=== PATIENT | male | born 1965 | race Caucasian/White ===

== ENCOUNTER → 2016-02-21 | Day surgery (SDC) | payer BC ==
[~2016-02-21] VITALS: Ht 162.6 cm; Wt 62.5 kg
[~2016-02-21] MED LIST: *morphine SULFATE 8 MG/ML PERIprocedure ONLY ONE; ACETAMINOPHEN 1000 MG/100 ML VIAL IV SCH; ATOR40TA16 PO; BUPIVACAINE/EPINEPHRINE 0.25% PF 30 ML VIAL ONE; BUTA1CAP5 PO; DO NOT ADM ANY ANTICOAGULANT DRUGS XX PRN; INSULIN HUMAN REGULAR 1,000 UNITS/10 ML VIAL SQ PRN; KETOROLAC TROMETHAMINE 60 MG/2 ML (IM) VIAL IM ONE; LACTATED RINGER'S 1000 ML IV SCH; LIDOCAINE 1%/EPINEPHrine 1:100,000 SOLN 20 ML VIAL ONE; METOPROLOL TARTRATE 25 MG TAB PO PRN; MIDAZOLAM HCL 2 MG/2 ML VIAL ONE; MORPHINE SULFATE 4 MG/ML INJ IV PRN; ONDANSETRON HCL 4 MG/2 ML VIAL IV PUSH PRN; PROPOFOL 200 MG/20 ML AMP IV ONE; SODIUM CHLORID 0.9% 500 ML IV SCH; ceFAZolin 2 GM PREMIX 50 ML IV SCH; fentaNYL CITRATE 250 MCG/5 ML AMP ONE; oxyCODONE/ACETAMINOPHEN 5 MG/325 MG TAB PO PRN
[2016-02-21 08:10] VITALS: BP 147/89; PULSE 77; RESP 16; TEMP 99; O2SAT 97
--- NOTE | 2016-02-21 11:08 | PD.OP ---
Operative Report Date of Surgery: Feb 21, 2016 Preoperative Diagnosis: (1) Left inguinal hernia Postoperative Diagnosis: (1) Left inguinal hernia Procedure: Left inguinal hernia repair Anesthesia: TIVA Surgeon: Matheus Banda Field Rep(s): Carla Mayes Operation and Findings: EBL: 5 cc Operative findings: The patient had a direct left inguinal hernia. The entire inguinal floor was weak. There was no evidence of an indirect hernia. Procedure in detail: The patient was taken to the operating room and placed in the supine position. TIVA anesthesia was induced. The lower abdomen and groin was prepped and draped in usual sterile fashion. Appropriate preoperative antibiotics were administered. Lidocaine with epinephrine was injected in the skin and subcutaneous tissue in the left inguinal area and an inguinal incision was made. Dissection was carried out through subcutaneous tissue with electrocautery. [place]'s fascia was divided with electrocautery and the external oblique was encountered. A paula along the direction of fibers was created with a scalpel and extended with Metzenbaum scissors taking care not to injure underlying nerves. The external oblique flaps were created. The spermatic cord and hernia sac were from underlying tissues and the pubis and isolated with a Joseph drain. Cremasteric muscle fibers were divided as necessary. At this point the spermatic cord structures were examined and no indirect hernia was encountered. The spermatic vessels and vas deferens were carefully preserved. The patient had a direct hernia defect medially. In addition the majority of the inguinal floor was weakened. A 3 x 5 " piece of lightweight polypropylene mesh was then cut to size. This was secured using simple interrupted 2-0 Ethibond suture to the pubic tubercle and along the inguinal ligament past the entrance of the spermatic cord into the internal ring. Simple interrupted 2-0 Ethibond sutures were used to fasten the superior aspect of the mesh medially and superiorly along the conjoined tendon and internal oblique fibers taking care to avoid nearby nerves. The internal ring was re-created by reapproximating the mesh with interrupted suture taking care to avoid strangulation of the cord. The lateral flaps of mesh were tucked under the external oblique fascia. There was appropriate hemostasis in the operative field. The external ring was re-created by closing the external oblique fascia with running 2-0 Vicryl suture. [place]'s was closed with interrupted 3-0 Vicryl sutures. Skin closed with running subcuticular 4-0 Monocryl as well as Dermabond. The patient tolerated procedure well and was taken to postop in stable condition. Matheus Banda MD Feb 21, 2016 11:08
[2016-02-21 13:00] VITALS: BP 119/80; PULSE 64; RESP 16; TEMP 98.1; O2SAT 97
== END | disposition home or self-care (01) ==
LOC: HSDC 07:41
PROVIDERS: ATTEND Surgery
DX: K40.90 Unilateral inguinal hernia, without obstruction or gangrene, not specified as recurrent (principal)
CPT/HCPCS: 00830; 49505; C1781; J0131; J0690; J1885; J2250; J2270; J3010; J7120

== ENCOUNTER 2017-04-04 01:01 | Emergency (ER) | payer BC, OTHER ==
[~2017-04-04] VITALS: Ht 162.6 cm; Wt 63.6 kg
[~2017-04-04 01:01] MED LIST changes: -*morphine SULFATE 8 MG/ML PERIprocedure ONLY ONE; -ACETAMINOPHEN 1000 MG/100 ML VIAL IV SCH; -BUPIVACAINE/EPINEPHRINE 0.25% PF 30 ML VIAL ONE; -DO NOT ADM ANY ANTICOAGULANT DRUGS XX PRN; -INSULIN HUMAN REGULAR 1,000 UNITS/10 ML VIAL SQ PRN; -KETOROLAC TROMETHAMINE 60 MG/2 ML (IM) VIAL IM ONE; -LACTATED RINGER'S 1000 ML IV SCH; -LIDOCAINE 1%/EPINEPHrine 1:100,000 SOLN 20 ML VIAL ONE; -METOPROLOL TARTRATE 25 MG TAB PO PRN; -MIDAZOLAM HCL 2 MG/2 ML VIAL ONE; -MORPHINE SULFATE 4 MG/ML INJ IV PRN; -ONDANSETRON HCL 4 MG/2 ML VIAL IV PUSH PRN; -PROPOFOL 200 MG/20 ML AMP IV ONE; -SODIUM CHLORID 0.9% 500 ML IV SCH; -ceFAZolin 2 GM PREMIX 50 ML IV SCH; -fentaNYL CITRATE 250 MCG/5 ML AMP ONE; -oxyCODONE/ACETAMINOPHEN 5 MG/325 MG TAB PO PRN
[2017-04-04 01:28] VITALS: BP 122/72; PULSE 92; RESP 16; TEMP 98.1; O2SAT 95
[2017-04-04 02:28] LABS: AUTOMATED NEUTROPHIL # 3.3 TH/MM3 (1.8-7.7); BASOPHIL # 0.2 TH/MM3 (0-0.2); BASOPHIL % 3.3 % (0.0-2.0); EOSINOPHIL # 0.2 TH/MM3 (0-0.4); EOSINOPHIL % 4.5 % (0.0-4.0); HEMATOCRIT 46.3 % (39.0-51.0); HEMOGLOBIN 16.6 GM/DL (13.0-17.0); LYMPH % 16.8 % (9.0-44.0); LYMPHOCYTE # 0.8 TH/MM3 (1.0-4.8); MEAN CELL VOLUME 86.1 FL (80.0-100.0); MEAN CORPUSCULAR HEMOGLOBIN 30.8 PG (27.0-34.0); MEAN CORPUSCULAR HGB CONC 35.7 % (32.0-36.0); MONO % 6.4 % (0.0-8.0); MONOCYTE # 0.3 TH/MM3 (0-0.9); PLATELET COUNT 246 TH/MM3 (150-450); RED BLOOD COUNT 5.38 MIL/MM3 (4.50-5.90); RED CELL DISTRIBUTION WIDTH 12.7 % (11.6-17.2); WHITE BLOOD COUNT 4.8 TH/MM3 (4.0-11.0)
[2017-04-04 02:29] LABS: BILIRUBIN, URINE NEG (NEG); BLOOD, URINE NEG (NEG); GLUCOSE,URINE NEG (NEG); KETONE, URINE NEG (NEG); MUCUS URINE FEW /lpf (OCC); NITRITE,URINE NEG (NEG); SQUAMOUS EPITHELIAL CELL URINE <1 /hpf (0-5); URINE COLOR LIGHT-YELLOW (YELLW/STRAW); URINE LEUKOCYTE ESTERASE NEG (NEG)
[2017-04-04 03:01] LABS: ALBUMIN 3.8 GM/DL (3.4-5.0); AST (GOT) 27 U/L (15-37); BICARBONATE 22.4 MEQ/L (21.0-32.0); BLOOD UREA NITROGEN 11 MG/DL (7-18); CALCIUM 8.5 MG/DL (8.5-10.1); CHLORIDE 107 MEQ/L (98-107); CREATININE 0.86 MG/DL (0.60-1.30); GLOMERULAR FILTRATION RATE 93 ML/MIN (>89); GLUCOSE,RANDOM 123 MG/DL (74-106); SODIUM (NA) 141 MEQ/L (136-145)
[2017-04-04 03:06] LABS: ALKALINE PHOSPHATASE 66 U/L (45-117); ALT (GPT) 41 U/L (12-78); TOTAL BILIRUBIN ADULT 0.3 MG/DL (0.2-1.0); TOTAL PROTEIN 7.6 GM/DL (6.4-8.2)
--- NOTE | 2017-04-04 03:23 | PD ---
HPI Chief Complaint: Psychiatric Symptoms Time Seen by Provider: 03:11 Travel History International Travel<30 days: No Contact w/Intl Traveler<30days: No Traveled to known affect area: No History of Present Illness HPI 51-year-old white male presents emergency department under [place] act by PD. The patient had posted suicide suggested posts on Facebook. The patient states that he had broken up with his boyfriend approximately 3 weeks ago. He had been drinking alcohol today. He had hoped that this somehow would bring his partner back. He wanted to know that people actually cared about him. He denies any true suicidal ideation. No homicidal ideation. No toxic ingestions. He does not smoke or do drugs. He states that he drinks on weekends. He denies any medical complaints. PFSH Past Medical History Cancer: No Cardiovascular Problems: No Diabetes: No Endocrine: No Gastrointestinal Disorders: Yes (GERD) Genitourinary: No Hepatitis: No Hiatal Hernia: Yes Immune Disorder: No Medical other: Yes (HYPERCHOLESTEROLEMIA) Musculoskeletal: No Neurologic: Yes (MIGRAINES) Psychiatric: No Respiratory: No Thyroid Disease: No Influenza Vaccination: No Past Surgical History Abdominal Surgery: No AICD: No Body Medical Devices: NONE Cardiac Surgery: No Ear Surgery: No Endocrine Surgery: No Eye Surgery: No Genitourinary Surgery: No Gynecologic Surgery: No Joint Replacement: No Oral Surgery: No Pacemaker: No Thoracic Surgery: No Other Surgery: Yes (Herniorrhaphy) Social History Alcohol Use: Yes (couple of times per week) Tobacco Use: No Substance Use: No Allergies-Medications (Allergen,Severity, Reaction): Coded Allergies: No Known Allergies (Unverified Adverse Reaction, Unknown, 04/04/17) Reported Meds & Prescriptions Reported Meds & Active Scripts Active Reported Tefdxbsegr-Irgvtcynywlij-Bjmylrxo 50-300-40 Mg Cap 1 Cap PO Q4H PRN Do not exceed 6 capsules/day. Review of Systems General / Constitutional: No: Fever Eyes: No: Visual changes HENT: No: Headaches Cardiovascular: No: Chest Pain or Discomfort Respiratory: No: Shortness of Breath Gastrointestinal: No: Abdominal Pain Genitourinary: No: Dysuria Musculoskeletal: No: Pain Skin: No Rash Neurologic: No: Weakness Psychiatric: Positive: Depression, Mood Disorder, No: Anxiety, Suicidal Ideations, Disorder of Thought, Substance Abuse, Homicidal Ideation Endocrine: No: Polydipsia Hematologic/Lymphatic: No: Easy Bruising Physical Exam Narrative GENERAL: Well-nourished, well-developed patient. SKIN: Warm and dry. HEAD: Normocephalic and atraumatic. EYES: No scleral icterus. No injection or drainage. ENT: No nasal drainage noted. Mucous membranes pink. Airway patent. NECK: Supple, trachea midline. Moves head freely without obvious discomfort. CARDIOVASCULAR: Regular rate and rhythm without murmurs, gallops, or rubs. RESPIRATORY: Breath sounds equal bilaterally. No accessory muscle use. GASTROINTESTINAL: Abdomen soft, non-tender, nondistended. EXTREMITIES: No cyanosis or edema. BACK: Nontender without obvious deformity. No CVA tenderness. NEURO: Patient is alert and oriented. no sensorimotor deficits. Nonfocal. Normal speech. PSYCH: No delusions. No auditory or visual hallucinations. Data Data Last Documented VS Vital Signs Date Time Temp Pulse Resp B/P (MAP) Pulse Ox O2 Delivery O2 Flow Rate FiO2 04/04/17 01:28 98.1 92 16 122/72 (89) 95 Orders Orders Complete Blood Count With Diff (04/04/17 01:46) Comprehensive Metabolic Panel (04/04/17 01:46) Psych Screen (04/04/17 01:46) Drug Screen, Random Urine (04/04/17 01:46) Urinalysis - C+S If Indicated (04/04/17 01:46) Alcohol (Ethanol) (04/04/17 03:12) Labs Laboratory Tests Test 04/04/17 01:50 04/04/17 01:55 Urine Color LIGHT-YELLOW Urine Turbidity CLEAR Urine pH 5.0 Urine Specific [place] 1.005 Urine Protein NEG mg/dL Urine Glucose (UA) NEG mg/dL Urine Ketones NEG mg/dL Urine Occult Blood NEG Urine Nitrite NEG Urine Bilirubin NEG Urine Urobilinogen LESS THAN 2.0 MG/DL Urine Leukocyte Esterase NEG Urine WBC 1 /hpf Urine Squamous Epithelial Cells <1 /hpf Urine Mucus FEW /lpf Microscopic Urinalysis Comment CULT NOT INDICATED Urine Opiates Screen NEG Urine Barbiturates Screen NEG Urine Amphetamines Screen NEG Urine Benzodiazepines Screen NEG Urine Cocaine Screen NEG Urine Cannabinoids Screen NEG White Blood Count 4.8 TH/MM3 Red Blood Count 5.38 MIL/MM3 Hemoglobin 16.6 GM/DL Hematocrit 46.3 % Mean Corpuscular Volume 86.1 FL Mean Corpuscular Hemoglobin 30.8 PG Mean Corpuscular Hemoglobin Concent 35.7 % Red Cell Distribution Width 12.7 % Platelet Count 246 TH/MM3 Mean Platelet Volume 7.0 FL Neutrophils (%) (Auto) 69.0 % Lymphocytes (%) (Auto) 16.8 % Monocytes (%) (Auto) 6.4 % Eosinophils (%) (Auto) 4.5 % Basophils (%) (Auto) 3.3 % Neutrophils # (Auto) 3.3 TH/MM3 Lymphocytes # (Auto) 0.8 TH/MM3 Monocytes # (Auto) 0.3 TH/MM3 Eosinophils # (Auto) 0.2 TH/MM3 Basophils # (Auto) 0.2 TH/MM3 CBC Comment DIFF FINAL Differential Comment Blood Urea Nitrogen 11 MG/DL Creatinine 0.86 MG/DL Random Glucose 123 MG/DL Total Protein 7.6 GM/DL Albumin 3.8 GM/DL Calcium Level 8.5 MG/DL Alkaline Phosphatase 66 U/L Aspartate Amino Transf (AST/SGOT) 27 U/L Alanine Aminotransferase (ALT/SGPT) 41 U/L Total Bilirubin 0.3 MG/DL Sodium Level 141 MEQ/L Potassium Level 3.5 MEQ/L Chloride Level 107 MEQ/L Carbon Dioxide Level 22.4 MEQ/L Anion Gap 12 MEQ/L Estimat Glomerular Filtration Rate 93 ML/MIN [facility] Medical Decision Making Medical Screen Exam Complete: Yes Emergency Medical Condition: Yes Medical Record Reviewed: Yes Interpretation(s) Laboratory Tests Test 04/04/17 01:50 04/04/17 01:55 Urine Color LIGHT-YELLOW Urine Turbidity CLEAR Urine pH 5.0 Urine Specific [place] 1.005 Urine Protein NEG mg/dL Urine Glucose (UA) NEG mg/dL Urine Ketones NEG mg/dL Urine Occult Blood NEG Urine Nitrite NEG Urine Bilirubin NEG Urine Urobilinogen LESS THAN 2.0 MG/DL Urine Leukocyte Esterase NEG Urine WBC 1 /hpf Urine Squamous Epithelial Cells <1 /hpf Urine Mucus FEW /lpf Microscopic Urinalysis Comment CULT NOT INDICATED Urine Opiates Screen NEG Urine Barbiturates Screen NEG Urine Amphetamines Screen NEG Urine Benzodiazepines Screen NEG Urine Cocaine Screen NEG Urine Cannabinoids Screen NEG White Blood Count 4.8 TH/MM3 Red Blood Count 5.38 MIL/MM3 Hemoglobin 16.6 GM/DL Hematocrit 46.3 % Mean Corpuscular Volume 86.1 FL Mean Corpuscular Hemoglobin 30.8 PG Mean Corpuscular Hemoglobin Concent 35.7 % Red Cell Distribution Width 12.7 % Platelet Count 246 TH/MM3 Mean Platelet Volume 7.0 FL Neutrophils (%) (Auto) 69.0 % Lymphocytes (%) (Auto) 16.8 % Monocytes (%) (Auto) 6.4 % Eosinophils (%) (Auto) 4.5 % Basophils (%) (Auto) 3.3 % Neutrophils # (Auto) 3.3 TH/MM3 Lymphocytes # (Auto) 0.8 TH/MM3 Monocytes # (Auto) 0.3 TH/MM3 Eosinophils # (Auto) 0.2 TH/MM3 Basophils # (Auto) 0.2 TH/MM3 CBC Comment DIFF FINAL Differential Comment Blood Urea Nitrogen 11 MG/DL Creatinine 0.86 MG/DL Random Glucose 123 MG/DL Total Protein 7.6 GM/DL Albumin 3.8 GM/DL Calcium Level 8.5 MG/DL Alkaline Phosphatase 66 U/L Aspartate Amino Transf (AST/SGOT) 27 U/L Alanine Aminotransferase (ALT/SGPT) 41 U/L Total Bilirubin 0.3 MG/DL Sodium Level 141 MEQ/L Potassium Level 3.5 MEQ/L Chloride Level 107 MEQ/L Carbon Dioxide Level 22.4 MEQ/L Anion Gap 12 MEQ/L Estimat Glomerular Filtration Rate 93 ML/MIN Differential Diagnosis MDM: High Differential diagnoses: Schizophrenia, schizoaffective disorder, bipolar, anxiety, depression, adjustment reaction, mood disorder NOS, ODD, depressive disorder NOS, dementia, dementia with agitation, psychosis NOS, substance induced mood disorder, DMDD, Asperger syndrome, infection,electrolyte abnormality, malingering. Narrative Course Mental health screening discussed with the patient. Psychiatric screen ordered. The patient has been medically cleared. This is medical clearance for psychiatric admission Diagnosis Primary Impression: Medical clearance for psychiatric admission Condition: Stable Shahab Sommers Apr 04, 2017 03:23
[2017-04-04 11:00] VITALS: BP 128/76; PULSE 87; RESP 16; O2SAT 96
--- NOTE | 2017-04-04 12:14 | PD ---
History of Present Illness Chief Complaint: Psychiatric Symptoms Time Seen by Provider: 11:50 Travel History International Travel<30 Days: No Contact w/Intl Traveler<30days: No Known affected area: No Legal Status Legal Status: [place] Act [place] Act Signed By: Radha Morales History of Present Illness: History of Present Illness HPI 51-year-old white male with no previous psychiatric history who presents emergency department under [place] act by PD. The [place] act report alleges that officers responding to a call in reference to the patient posting alarming stains on his Facebook including having posted goodbyes to his friends and family and had said he leaves his belongings to his family. The patient admits that he did make the postings on Facebook that he did so with the intent of getting the attention of his significant other as well as to get verification that people cared about him. He also admits that he had been drinking and that had that not been the case he would not have made the statements. He states" when you drink you do stupid stuff. I shouldn't have posted. I was trying to get my partner back." His blood alcohol level on arrival to the ED was 146. EMR reviewed. No previous contact with [facility] psychiatry. Toxicology is negative for any other substances. The patient is seen in the main ED. He is clinically sober. He is calm, cooperative and engaging. He is found watching the races on the television. His speech is clear, logical, normal rate and tone. There is no evidence of any thought process or content disturbance. There is no significant objective clinical evidence of depression or anxiety. There is no suicidal or homicidal, ideation, intent or plan. Fund of knowledge is average. Concentration and attention are not impaired. Remainder of psychiatric review of systems is normal. Patient acknowledges that he was drinking and that that contributed to his statements. He is future oriented and has family support including his mother. Patient also professes his Hinduism pepe and plans on returning to [facility] for support. [facility] Past Medical History Cancer: No Cardiovascular Problems: No Diabetes: No Endocrine: No Gastrointestinal Disorders: Yes (GERD) Genitourinary: No Hepatitis: No Hiatal Hernia: Yes Immune Disorder: No Medical other: Yes (HYPERCHOLESTEROLEMIA) Musculoskeletal: No Neurologic: Yes (MIGRAINES) Psychiatric: No Respiratory: No Thyroid Disease: No Influenza Vaccination: No Past Surgical History Abdominal Surgery: No AICD: No Body Medical Devices: NONE Cardiac Surgery: No Ear Surgery: No Endocrine Surgery: No Eye Surgery: No Genitourinary Surgery: No Gynecologic Surgery: No Joint Replacement: No Oral Surgery: No Pacemaker: No Thoracic Surgery: No Other Surgery: Yes (Herniorrhaphy) Psychiatric History Psychiatric History Hx Psychiatric Treatment: Denies any. No previous history of suicide attempts. History of Inpatient Treatment: No Guns or firearms in home: No Social History Born and raised in [facility]. He is a retired EMT. Never . No children. Currently lives by himself. An works at a [employer]. Hx Alcohol Use: Yes (couple of times per week) Hx Tobacco Use: No Hx Substance Use: No Substance Use Type: Alcohol (reports that he does not drink on a daily basis and has never had problems with alcohol) Hx of Substance Use Treatment: No Family Psychiatric History Negative Allergies-Medications (Allergen,Severity, Reaction): Coded Allergies: No Known Allergies (Unverified Adverse Reaction, Unknown, 04/04/17) Reported Meds & Prescriptions Reported Meds & Active Scripts Active Reported Ipxaxemscy-Ptyejpstryvpi-Xnoioyzr 50-300-40 Mg Cap 1 Cap PO Q4H PRN Do not exceed 6 capsules/day. Review of Systems Psychiatric: DENIES: Anxiety, Confusion, Mood changes, Depression, Hallucinations, Agitation, Suicidal Ideation, Homicidal Ideation, Delusions Except as stated in HPI: all other systems reviewed are Neg Mental Status Examination Appearance: Appropriate (dressed in [facility] with adequate hygiene and grooming.) Consciousness: Alert Orientation: x4 Motor Activity: Normal gait Speech: Unremarkable Language: Adequate Fund of Knowledge: Adequate Attention and Concentration: Adequate Memory: Unremarkable Mood: Appropriate, Good Affect: Appropriate Thought Process & Associations: Intact, Logical, Goal directed Thought Content: Appropriate Hallucination Type: None Delusion Type: None Suicidal Ideation: No Suicidal Plan: No Suicidal Intention: No Homicidal Ideation: No Homicidal Plan: No Homicidal Intention: No Insight: Adequate Judgment: Adequate MDM Medical Decision Making Medical Record Reviewed: Yes Assessment/Plan History of Present Illness 51-year-old white male with no previous psychiatric history who presents emergency department under [place] act by PD. The [place] act report alleges that officers responding to a call in reference to the patient posting alarming stains on his Facebook including having posted goodbyes to his friends and family and had said he leaves his belongings to his family. The patient admits that he did make the postings on Facebook that he did so with the intent of getting the attention of his significant other as well as to get verification that people cared about him. He also admits that he had been drinking and that had that not been the case he would not have made the statements. He states" when you drink you do stupid stuff. I shouldn't have posted. I was trying to get my partner back." The patient wants clinical sober denies any suicidal or homicidal ideation, intent or plan. There is no evidence of any unstable mental illness as defined under the [place] act. He is future oriented. Has adequate protective factors. At this time the patient is requesting to be discharge from the ED. He does not want to miss the [employer]. He is provided psychoeducation and support. Abstinence from alcohol is recommended. The [place] act is lifted.Psychiatrically cleared for discharge from ED. Orders Orders Complete Blood Count With Diff (04/04/17 01:46) Comprehensive Metabolic Panel (04/04/17 01:46) Psych Screen (04/04/17 01:46) Drug Screen, Random Urine (04/04/17 01:46) Urinalysis - C+S If Indicated (04/04/17 01:46) Alcohol (Ethanol) (04/04/17 01:55) Diet Regular Basic (04/04/17 Breakfast) Diet Regular Basic (04/04/17 Lunch) Results Vital Signs Date Time Temp Pulse Resp B/P (MAP) Pulse Ox O2 Delivery O2 Flow Rate FiO2 04/04/17 11:00 87 16 128/76 (93) 96 Room Air 04/04/17 01:28 98.1 92 16 122/72 (89) 95 Laboratory Tests Test 04/04/17 01:50 04/04/17 01:55 Urine Color LIGHT-YELLOW Urine Turbidity CLEAR Urine pH 5.0 Urine Specific [place] 1.005 Urine Protein NEG Urine Glucose (UA) NEG Urine Ketones NEG Urine Occult Blood NEG Urine Nitrite NEG Urine Bilirubin NEG Urine Urobilinogen LESS THAN 2.0 Urine Leukocyte Esterase NEG Urine WBC 1 Urine Squamous Epithelial Cells <1 Urine Mucus FEW Microscopic Urinalysis Comment CULT NOT INDICATED Urine Opiates Screen NEG Urine Barbiturates Screen NEG Urine Amphetamines Screen NEG Urine Benzodiazepines Screen NEG Urine Cocaine Screen NEG Urine Cannabinoids Screen NEG White Blood Count 4.8 Red Blood Count 5.38 Hemoglobin 16.6 Hematocrit 46.3 Mean Corpuscular Volume 86.1 Mean Corpuscular Hemoglobin 30.8 Mean Corpuscular Hemoglobin Concent 35.7 Red Cell Distribution Width 12.7 Platelet Count 246 Mean Platelet Volume 7.0 Neutrophils (%) (Auto) 69.0 Lymphocytes (%) (Auto) 16.8 Monocytes (%) (Auto) 6.4 Eosinophils (%) (Auto) 4.5 Basophils (%) (Auto) 3.3 Neutrophils # (Auto) 3.3 Lymphocytes # (Auto) 0.8 Monocytes # (Auto) 0.3 Eosinophils # (Auto) 0.2 Basophils # (Auto) 0.2 CBC Comment DIFF FINAL Differential Comment Blood Urea Nitrogen 11 Creatinine 0.86 Random Glucose 123 Total Protein 7.6 Albumin 3.8 Calcium Level 8.5 Alkaline Phosphatase 66 Aspartate Amino Transf (AST/SGOT) 27 Alanine Aminotransferase (ALT/SGPT) 41 Total Bilirubin 0.3 Sodium Level 141 Potassium Level 3.5 Chloride Level 107 Carbon Dioxide Level 22.4 Anion Gap 12 Estimat Glomerular Filtration Rate 93 Ethyl Alcohol Level 146 Diagnosis Primary Impression: Medical clearance for psychiatric admission Additional Impression: Adjustment disorder Psychiatrically Cleared: Yes Med/ Other Pt Specific Info: No Meds Exist/No RX given Disposition: 01 DISCHARGE HOME Condition: Stable Problem Qualifiers Additional Impression: Adjustment disorder Qualified Codes: F43.25 - Adjustment disorder with mixed disturbance of emotions and conduct Federica Landers Apr 04, 2017 12:14
--- NOTE | 2017-04-04 12:22 | PD ---
Physical Exam Date Seen by Provider: Apr 04, 2017 Time Seen by Provider: 12:20 Narrative The patient is a 51-year-old male was initially evaluated by the previous physician. Please refer to the initial history, physical, diagnostic evaluation , treatment modality plan. Data Data Last Documented VS Vital Signs Date Time Temp Pulse Resp B/P (MAP) Pulse Ox O2 Delivery O2 Flow Rate FiO2 04/04/17 11:00 87 16 128/76 (93) 96 Room Air 04/04/17 01:28 98.1 Orders Orders Complete Blood Count With Diff (04/04/17 01:46) Comprehensive Metabolic Panel (04/04/17 01:46) Psych Screen (04/04/17 01:46) Drug Screen, Random Urine (04/04/17 01:46) Urinalysis - C+S If Indicated (04/04/17 01:46) Alcohol (Ethanol) (04/04/17 01:55) Diet Regular Basic (04/04/17 Breakfast) Diet Regular Basic (04/04/17 Lunch) Labs Laboratory Tests Test 04/04/17 01:50 04/04/17 01:55 Urine Color LIGHT-YELLOW Urine Turbidity CLEAR Urine pH 5.0 Urine Specific [place] 1.005 Urine Protein NEG mg/dL Urine Glucose (UA) NEG mg/dL Urine Ketones NEG mg/dL Urine Occult Blood NEG Urine Nitrite NEG Urine Bilirubin NEG Urine Urobilinogen LESS THAN 2.0 MG/DL Urine Leukocyte Esterase NEG Urine WBC 1 /hpf Urine Squamous Epithelial Cells <1 /hpf Urine Mucus FEW /lpf Microscopic Urinalysis Comment CULT NOT INDICATED Urine Opiates Screen NEG Urine Barbiturates Screen NEG Urine Amphetamines Screen NEG Urine Benzodiazepines Screen NEG Urine Cocaine Screen NEG Urine Cannabinoids Screen NEG White Blood Count 4.8 TH/MM3 Red Blood Count 5.38 MIL/MM3 Hemoglobin 16.6 GM/DL Hematocrit 46.3 % Mean Corpuscular Volume 86.1 FL Mean Corpuscular Hemoglobin 30.8 PG Mean Corpuscular Hemoglobin Concent 35.7 % Red Cell Distribution Width 12.7 % Platelet Count 246 TH/MM3 Mean Platelet Volume 7.0 FL Neutrophils (%) (Auto) 69.0 % Lymphocytes (%) (Auto) 16.8 % Monocytes (%) (Auto) 6.4 % Eosinophils (%) (Auto) 4.5 % Basophils (%) (Auto) 3.3 % Neutrophils # (Auto) 3.3 TH/MM3 Lymphocytes # (Auto) 0.8 TH/MM3 Monocytes # (Auto) 0.3 TH/MM3 Eosinophils # (Auto) 0.2 TH/MM3 Basophils # (Auto) 0.2 TH/MM3 CBC Comment DIFF FINAL Differential Comment Blood Urea Nitrogen 11 MG/DL Creatinine 0.86 MG/DL Random Glucose 123 MG/DL Total Protein 7.6 GM/DL Albumin 3.8 GM/DL Calcium Level 8.5 MG/DL Alkaline Phosphatase 66 U/L Aspartate Amino Transf (AST/SGOT) 27 U/L Alanine Aminotransferase (ALT/SGPT) 41 U/L Total Bilirubin 0.3 MG/DL Sodium Level 141 MEQ/L Potassium Level 3.5 MEQ/L Chloride Level 107 MEQ/L Carbon Dioxide Level 22.4 MEQ/L Anion Gap 12 MEQ/L Estimat Glomerular Filtration Rate 93 ML/MIN Ethyl Alcohol Level 146 MG/DL [facility] Medical Record Reviewed: Yes Supervised Visit with ALVARO: Yes Differential Diagnosis Laboratory Tests Test 04/04/17 01:50 04/04/17 01:55 Urine Color LIGHT-YELLOW Urine Turbidity CLEAR Urine pH 5.0 Urine Specific [place] 1.005 Urine Protein NEG mg/dL Urine Glucose (UA) NEG mg/dL Urine Ketones NEG mg/dL Urine Occult Blood NEG Urine Nitrite NEG Urine Bilirubin NEG Urine Urobilinogen LESS THAN 2.0 MG/DL Urine Leukocyte Esterase NEG Urine WBC 1 /hpf Urine Squamous Epithelial Cells <1 /hpf Urine Mucus FEW /lpf Microscopic Urinalysis Comment CULT NOT INDICATED Urine Opiates Screen NEG Urine Barbiturates Screen NEG Urine Amphetamines Screen NEG Urine Benzodiazepines Screen NEG Urine Cocaine Screen NEG Urine Cannabinoids Screen NEG White Blood Count 4.8 TH/MM3 Red Blood Count 5.38 MIL/MM3 Hemoglobin 16.6 GM/DL Hematocrit 46.3 % Mean Corpuscular Volume 86.1 FL Mean Corpuscular Hemoglobin 30.8 PG Mean Corpuscular Hemoglobin Concent 35.7 % Red Cell Distribution Width 12.7 % Platelet Count 246 TH/MM3 Mean Platelet Volume 7.0 FL Neutrophils (%) (Auto) 69.0 % Lymphocytes (%) (Auto) 16.8 % Monocytes (%) (Auto) 6.4 % Eosinophils (%) (Auto) 4.5 % Basophils (%) (Auto) 3.3 % Neutrophils # (Auto) 3.3 TH/MM3 Lymphocytes # (Auto) 0.8 TH/MM3 Monocytes # (Auto) 0.3 TH/MM3 Eosinophils # (Auto) 0.2 TH/MM3 Basophils # (Auto) 0.2 TH/MM3 CBC Comment DIFF FINAL Differential Comment Blood Urea Nitrogen 11 MG/DL Creatinine 0.86 MG/DL Random Glucose 123 MG/DL Total Protein 7.6 GM/DL Albumin 3.8 GM/DL Calcium Level 8.5 MG/DL Alkaline Phosphatase 66 U/L Aspartate Amino Transf (AST/SGOT) 27 U/L Alanine Aminotransferase (ALT/SGPT) 41 U/L Total Bilirubin 0.3 MG/DL Sodium Level 141 MEQ/L Potassium Level 3.5 MEQ/L Chloride Level 107 MEQ/L Carbon Dioxide Level 22.4 MEQ/L Anion Gap 12 MEQ/L Estimat Glomerular Filtration Rate 93 ML/MIN Ethyl Alcohol Level 146 MG/DL Narrative Course The patient was initially evaluated by the previous provider, please refer to the initial history, physical, diagnostic evaluation, and treatment modality plan. The patient's alcohol level was elevated, the patient was evaluated by psychiatry, the Cali act was lifted. The patient no longer has suicide ideation, he is now clinically sober, wishes to return home. Patient will be discharged. Diagnosis Primary Impression: Medical clearance for psychiatric admission Additional Impression: Adjustment disorder Qualified Codes: F43.25 - Adjustment disorder with mixed disturbance of emotions and conduct Patient Instructions: General Instructions Additional Instruction: Follow-up with outpatient services as needed. Return if symptoms worsen or progress. Disposition: 01 DISCHARGE HOME Condition: Stable Hever Saldaña MD Apr 04, 2017 12:22
== END 2017-04-04 12:40 | disposition home or self-care (01) ==
LOC: NEPD 01:01
DX: F43.25 Adjustment disorder with mixed disturbance of emotions and conduct (principal)
CPT/HCPCS: 80053; 80307; 81001; 85025; 99284